=== PATIENT | male | born 1955 | race Caucasian/White ===

== ENCOUNTER 2024-06-19 09:33 | Emergency (ER) | payer OTHER ==
[~2024-06-19] VITALS: Ht 167.6 cm; Wt 90.0 kg
[2024-06-19 09:49] VITALS: TEMP 97.8
[2024-06-19] MEDS ORDERED: GUAIFDM PO (10:37)
[2024-06-19] MEDS ORDERED: IBUP-1554 PO (10:37)
[2024-06-19] MEDS ORDERED: ACET-66 PO (10:37)
[2024-06-19 11:00] VITALS: BP 116/74; PULSE 74; RESP 17; O2SAT 97
== END 2024-06-19 11:12 | disposition home or self-care (01) ==
LOC: EMS 09:37
DX: S20.219A Contusion of unspecified front wall of thorax, initial encounter (principal); J06.9 Acute upper respiratory infection, unspecified; E11.9 Type 2 diabetes mellitus without complications; E78.00 Pure hypercholesterolemia, unspecified; I10 Essential (primary) hypertension; N40.0 Benign prostatic hyperplasia without lower urinary tract symptoms; V43.52XA Car driver injured in collision with other type car in traffic accident, initial encounter; Y93.89 Activity, other specified; Y92.89 Other specified places as the place of occurrence of the external cause; Y99.8 Other external cause status
CPT/HCPCS: 99282; Z7502